=== PATIENT | female | born 1990 ===

== ENCOUNTER 2017-09-24 09:30 | Inpatient (IN) | payer OTHER ==
[~2017-09-24] VITALS: Ht 165.1 cm; Wt 2.7 kg
[~2017-09-24 09:30] MED LIST: FEOSOL1 TAB PO; ULTRACET PO
[2017-10-04] MEDS ORDERED: FEOSOL325 MG PO (07:30)
[2017-10-04] MEDS ORDERED: PERCOCET 5-3251 EACH PO (07:30)
== END 2017-10-04 10:06 | DRG 766 ==
LOC: O/R 10-01 05:40 → LDR 10-01 07:00 → SURG-SUITE 10-01 11:32 → OB/GYN 10-02 11:58 → SURG-SUITE 10-02 12:57
PROVIDERS: Specialist
PROC: 4A1HXCZ Monitoring of Products of Conception, Cardiac Rate, External Approach (ICD-10-PCS; 2017-10-01)
PROC: 10D00Z1 Extraction of Products of Conception, Low, Open Approach (ICD-10-PCS; principal; 2017-10-01 07:00)
DX: O99.02 Anemia complicating childbirth (principal); Z37.0 Single live birth; Z3A.38 38 weeks gestation of pregnancy

== ENCOUNTER → 2022-03-15 | Emergency (ER) | payer OTHER ==
[~2022-03-15] VITALS: Ht 170.2 cm; Wt 59.0 kg
[~2022-03-15] MED LIST changes: +FEOSOL325 MG PO; +PERCOCET 5-3251 EACH PO
== END | disposition home or self-care (01) ==
LOC: ER 18:36
DX: N13.2 Hydronephrosis with renal and ureteral calculous obstruction (principal); Z88.1 Allergy status to other antibiotic agents

== ENCOUNTER 2022-03-18 10:36 | Inpatient (IN) | payer OTHER ==
[~2022-03-18] VITALS: Ht 165.1 cm; Wt 63.5 kg
== END 2022-03-23 18:00 | disposition home or self-care (01) | DRG 659 ==
LOC: ER 10:36 → O/R 18:24 → SEC-K 18:24 → MEDJ 18:24 → O/R 03-19 07:43 → MEDJ 03-19 12:13
PROVIDERS: Urology; ADMIT Internal Medicine; ATTEND Internal Medicine
PROC: BW21ZZZ Computerized Tomography (CT Scan) of Abdomen and Pelvis (ICD-10-PCS; 2022-03-18)
PROC: 0T778DZ Dilation of Left Ureter with Intraluminal Device, Via Natural or Artificial Opening Endoscopic (ICD-10-PCS; principal; 2022-03-18 22:30)
PROC: BT04ZZZ Plain Radiography of Kidneys, Ureters and Bladder (ICD-10-PCS; 2022-03-20)
PROC: B52SYZZ Computerized Tomography (CT Scan) of Bilateral Pulmonary Veins using Other Contrast (ICD-10-PCS; 2022-03-20)
DX: N13.2 Hydronephrosis with renal and ureteral calculous obstruction (principal); A41.9 Sepsis, unspecified organism; J90 Pleural effusion, not elsewhere classified; D64.9 Anemia, unspecified; N39.0 Urinary tract infection, site not specified; B96.20 Unspecified Escherichia coli [E. coli] as the cause of diseases classified elsewhere; N12 Tubulo-interstitial nephritis, not specified as acute or chronic; D72.829 Elevated white blood cell count, unspecified; Z20.822 Contact with and (suspected) exposure to COVID-19
CPT/HCPCS: 71275

== ENCOUNTER 2022-04-06 13:37 | Emergency (ER) | payer OTHER ==
[~2022-04-06] VITALS: Ht 165.1 cm; Wt 59.0 kg
== END 2022-04-06 21:01 | disposition home or self-care (01) ==
LOC: ER 13:37
DX: R31.9 Hematuria, unspecified (principal); Z96.0 Presence of urogenital implants; D64.9 Anemia, unspecified

== ENCOUNTER → 2022-06-25 | Outpatient (CLI) | payer OTHER | END | disposition home or self-care (01) | LOC: SONOGRAMA 12:54 | PROVIDERS: ATTEND Urology | DX: N31.1 Reflex neuropathic bladder, not elsewhere classified (principal) ==

== ENCOUNTER 2023-01-28 13:57 | Outpatient (CLI) | payer OTHER | END 2023-01-28 14:12 | disposition home or self-care (01) | LOC: SONOGRAMA 13:57 | PROVIDERS: ATTEND Physical Medicine & Rehabilitation | DX: D25.9 Leiomyoma of uterus, unspecified (principal) ==

== ENCOUNTER 2023-05-19 17:17 | Emergency (ER) | payer OTHER ==
[~2023-05-19] VITALS: Ht 165.1 cm; Wt 63.0 kg
[2023-05-19 20:25] LABS: PH,URINE 5.5 (5.0-8.0); URINE APPEARANCE Turbid; URINE BILIRRUBIN Negative (NEGATIVE); URINE BLOOD Trace; URINE COLOR Dark Yellow; URINE GLUCOSE Negative (NEGATIVE); URINE LEUKOCYTE Negative; URINE NITRATE Negative; URINE PROTEIN 30 (NEGATIVE)
[2023-05-19 20:29] LABS: URINE EPITHELIAL CELLS 143.7 uL (0.0-38.8); URINE RBC 11.4 uL (0.0-20.8); URINE WBC 52.1 uL (0.0-23.2)
[2023-05-19 20:47] LABS: URINE BACTERIA > 9821.5 uL (0.0-1933)
[2023-05-19 21:11] LABS: HEMATOCRIT 30.5 % (36.0-45.00); MEAN CORPUSCULAR HGB CONC 29.5 g/dl (32.0-36.0); RED BLOOD COUNT 5.63 M/uL (4.00-6.00)
[2023-05-19 21:13] LABS: MEAN CELL VOLUME 54.1 fL (80.00-100.00); MEAN CORPUSCULAR HEMOGLOBIN 15.9 pg (27.00-32.0)
[2023-05-19 21:16] LABS: PLATELET COUNT 410 K/uL (150-450); RED CELL DISTRIBUTION WIDTH 22.4 % (11.5-14.5)
[2023-05-19 21:41] LABS: CALCIUM 8.4 mg/dL (8.5-10.1); CREATININE SERUM 0.84 mg/dL (0.55-1.02); GFR 77.61; POTASSIUM 3.41 mEq/L (3.5-5.1)
[2023-05-19] MEDS ORDERED: ZOFRAN8 MG PO (22:07)
[2023-05-19] MEDS ORDERED: PEPCID AC20 MG PO (22:07)
[2023-05-19] MEDS ORDERED: DICY20TA PO (22:07)
== END 2023-05-19 22:19 | disposition home or self-care (01) ==
LOC: ER 17:17
PROVIDERS: General Practice
DX: K52.89 Other specified noninfective gastroenteritis and colitis (principal); Z20.822 Contact with and (suspected) exposure to COVID-19